=== PATIENT | female | born 1995 | race Two or more races ===

== ENCOUNTER 2018-09-22 11:25 | Emergency (ER) | payer MEDICAID, OTHER ==
[~2018-09-22] VITALS: Ht 162.6 cm; Wt 86.2 kg
--- NOTE | 2018-09-22 11:30 | NUR ---
PT IN BED 3 C/O INTERMITTENT CHEST PAIN X2 WEEKS. PT IS AOX4. DENIES PAIN AT THIS TIME. NAD NOTED. WILL CONTINUE TO MONITOR.
--- NOTE | 2018-09-22 12:08 | NUR ---
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
--- NOTE | 2018-09-22 12:19 | NUR ---
Patient discharged to home in stable condition. Written and verbal after care instructions given. Patient verbalizes understanding of instruction.
[2018-09-22 12:20] VITALS: BP 134/85
== END 2018-09-22 12:21 | disposition home or self-care (01) ==
LOC: ER 11:26
DX: R07.89 Other chest pain (principal); Z30.430 Encounter for insertion of intrauterine contraceptive device
CPT/HCPCS: 71045-TC; A4606; Z7610

== ENCOUNTER 2019-10-19 23:22 | Emergency (ER) | payer OTHER, MEDICAID ==
[~2019-10-19] VITALS: Ht 162.6 cm; Wt 85.3 kg
--- NOTE | 2019-10-20 00:03 | NUR ---
RECEIVED PATIENT AMBULATORY WITH COMPLAINT OF SORETHROAT 2 DAYS PRIOR TO ADMISSION. DENIES ANY OTHER SYMPTOMS. PATIENT IS CONCERNED OF HEALTH STATUS DUE TO TAKING CARE OF HER BABY.
--- NOTE | 2019-10-20 00:24 | NUR ---
SEEN AND EXAMINED BY
[2019-10-20] MEDS ORDERED: DEXAMETHASONE SOLN 5 MG/5 ML UDC ONE (00:42)
[2019-10-20] MEDS ORDERED: DEXAMETHASONE SOLN 5 MG/5 ML UDC PO ONE (01:00)
--- NOTE | 2019-10-20 01:25 | NUR ---
pt ok to discharge per dr matt. Patient discharged to home in stable condition. Written and verbal after care instructions given. Patient verbalizes understanding of instruction.Patient is awake and alert to self, day, and place. pt ambulatory with a steady gait
[2019-10-20 01:26] VITALS: BP 134/80
== END 2019-10-20 01:26 | disposition home or self-care (01) ==
LOC: ER 23:25
DX: J02.8 Acute pharyngitis due to other specified organisms (principal); B97.89 Other viral agents as the cause of diseases classified elsewhere; B95.0 Streptococcus, group A, as the cause of diseases classified elsewhere; Z88.5 Allergy status to narcotic agent
CPT/HCPCS: 87070; 87880; 99283; J8540; 86403-TC

== ENCOUNTER 2020-07-04 03:40 | Emergency (ER) | payer MEDICAID, OTHER ==
[~2020-07-04] VITALS: Ht 162.6 cm; Wt 85.7 kg
--- NOTE | 2020-07-04 03:45 | NUR ---
PATIENT CAME IN FROM HOME WITH A COMPLAIN OF EPIGASTRIC PAIN, STABBING PAIN, A/OX4, AMBULATORY, NO SOB, 8 WEEKS , LMP 04/21, NO VAGINAL BLEEDING.
[2020-07-04] MEDS ORDERED: METOCLOPRAMIDE HCL 10 MG/2 ML VIAL IV ONE (04:00)
[2020-07-04] MEDS ORDERED: IV NS 0.9% 1,000 ML BAG IV ONE (04:00)
--- NOTE | 2020-07-04 04:00 | NUR ---
[facility] #20G AT [facility].
[2020-07-04] MEDS ORDERED: METOCLOPRAMIDE HCL 10 MG/2 ML VIAL ONE (04:01)
[2020-07-04 04:10] LABS: BASOPHILS # (AUTO) 0.2 /CMM (0.0-0.2); BASOPHILS % (AUTO) 1.6 % (0.0-2.0); EOSINOPHILS % (AUTO) 1.7 % (0.0-6.0); HEMATOCRIT 39 % (33-45); HEMOGLOBIN 12.9 g/dL (11.5-14.8); LYMPHOCYTES # (AUTO) 2.8 /CMM (0.8-4.8); LYMPHOCYTES % (AUTO) 27.9 % (20.0-44.0); MEAN CORPUSCULAR HGB CONC 33 g/dl (31.0-36.0); MEAN CORPUSCULAR VOLUME 83 fL (82-100); MONOCYTES # (AUTO) 0.5 /CMM (0.1-1.30); MONOCYTES % (AUTO) 5.1 % (2.0-12.0); NEUTROPHILS # (AUTO) 6.3 /CMM (1.8-8.9); NEUTROPHILS % (AUTO) 63.7 % (43.0-81.0); PLATELET COUNT (AUTO) 224 /CMM (150-450); RED BLOOD CELL COUNT(AUTO) 4.74 MIL/uL (4.0-5.2); WHITE BLOOD COUNT (AUTO) 9.9 K/uL (4.3-11.0)
--- NOTE | 2020-07-04 04:40 | NUR ---
ULTRASOUND AT BEDSIDE
[2020-07-04 04:49] LABS: APPEARANCE,URINE CLEAR (CLEAR); BILIRUBIN,URINE NEGATIVE (NEGATIVE); BLOOD, URINE NEGATIVE Ery/uL (NEGATIVE); COLOR,URINE YELLOW (YELLOW); KETONES,URINE NEGATIVE (NEGATIVE); LEUKOCYTE ESTERASE ,URINE NEGATIVE (NEGATIVE); NITRITE, URINE NEGATIVE (NEGATIVE); PROTEIN,URINE NEGATIVE (NEGATIVE); UGLUCOSE NEGATIVE (NEGATIVE); UROBILINOGEN,URINE 0.2 EU/dL (0.2)
[2020-07-04 04:52] LABS: ALBUMIN 3.8 g/dL (3.4-5.0); BILIRUBIN,DIRECT 0.1 mg/dL (0.0-0.2); BILIRUBIN,TOTAL 0.5 mg/dL (0.2-1.0); CALCIUM, SERUM 9.2 mg/dL (8.5-10.1); CREATININE 0.8 mg/dL (0.6-1.3); POTASSIUM 3.4 mmol/L (3.5-5.1); TOTAL PROTEIN, SERUM 7.7 g/dL (6.4-8.2)
[2020-07-04 06:32] VITALS: BP 124/63
--- NOTE | 2020-07-04 06:32 | NUR ---
Patient discharged to home in stable condition. Written and verbal after care instructions given. Patient verbalizes understanding of instruction. IV removed. Catheter intact and site benign. Pressure and 4x4 applied to site. No bleeding noted. ambulatory with a steady gait
== END 2020-07-04 06:33 | disposition home or self-care (01) ==
LOC: ER 03:43
DX: O26.891 Other specified pregnancy related conditions, first trimester (principal); O21.8 Other vomiting complicating pregnancy; O16.1 Unspecified maternal hypertension, first trimester; R10.13 Epigastric pain; Z88.5 Allergy status to narcotic agent; Z3A.01 Less than 8 weeks gestation of pregnancy
CPT/HCPCS: 36415; 76705; 76805; 80048; 80076; 81001; 84702; 85025; 86850; 96361; 96374; 99285; J2765; 81000-TC

== ENCOUNTER 2023-11-11 14:01 | Emergency (ER) | payer MEDICAID, OTHER ==
[~2023-11-11] VITALS: Ht 162.6 cm; Wt 88.5 kg
[2023-11-11 15:38] VITALS: BP 136/77; TEMP 98.4
[2023-11-11] MEDS ORDERED: LIDOCAINE 2% 20 ML MDV ONE (15:58)
[2023-11-11] MEDS ORDERED: LIDOCAINE HCL/PF 1% 30 ML VIAL TP ONE (16:00)
[2023-11-11] MEDS ORDERED: TDAP [DIPH/PERTUSSIS/TET] 0.5 ML VIAL IM ONE (17:00)
[2023-11-11 17:13] VITALS: O2SAT 100
== END 2023-11-11 17:13 | disposition home or self-care (01) ==
LOC: ER 14:16
DX: S61.215A Laceration without foreign body of left ring finger without damage to nail, initial encounter (principal); Z88.5 Allergy status to narcotic agent; W26.0XXA Contact with knife, initial encounter; Y93.89 Activity, other specified; Y92.89 Other specified places as the place of occurrence of the external cause; Y99.8 Other external cause status
CPT/HCPCS: 12002; 99282; A6403; J3490